=== PATIENT | female | born 1945 | race Caucasian/White ===

== ENCOUNTER → 2016-10-15 | Outpatient (CLI) | payer OTHER ==
[~2016-10-15] MED LIST: CALTRATE 600+D PO; MULTIPLE VITAMI1 T11 PO; OCUVITE TABLET1 TA1 PO; VITAMIN C250 M1 PO
--- NOTE | ~2016-10-15 | MY29 ---
[facility] A Service of [facility] RADIOLOGY TEXT RESULTS PATIENT: JOSELO PATHAK LOCATION: [facility] : 41 UNIT #: [id number] AGE: [address]: Meli Velazquez MD SEX: F ORDER DR: [id number] [facility] [address] [place], [place] [address] [id number] O MR#: [id number] Acc #: [id number] NAME: JOSELO PATHAK : 1945 SEX: F STUDY DATE/TIME: 10/15/2016 9:44 UNIT: [facility] ROOM: STUDY DESCRIPTION: MY FREDDIE SCREENING W/ CAD BILAT Attending Physician: Meli Velazquez M.D. Referring Physician: Meli Velazquez M.D. Ordering Physician: Meli Velazquez M.D. Primary Care Physician: Meli Velazquez M.D. MEDICAL IMAGING REPORT This report is preliminary unless electronic signature is present EXAM Bilateral digital screening mammogram with CAD DATE 10/15/2016 HISTORY Family history of breast cancer in 2 aunts in her late 60s. No personal history of breast cancer or current complaints. COMPARISON Bilateral screening mammogram 10/14/2015, 12/31/2013, 12/26/2012. FINDINGS CC and MLO views were obtained of each breast utilizing digital technique and reviewed with an FDA-approved CAD device. Heterogeneously dense fibroglandular tissue is present bilaterally which can limit sensitivity of mammography. No new or developing nodule is identified. A marker was placed over the left breast denoting the skin lesion. Benign round calcifications are present within each breast, left greater than right. There are no suspicious clustered microcalcifications. There is no architectural distortion. IMPRESSION BIRADS 2. Benign findings. Routine bilateral screening mammogram is recommended in 1 year. Patients over the age of 40 are entered into a reminder system with target due date for the next mammogram. A result letter will also be sent to the patient. BIRADS: 2, benign findings. [facility] A Service of [facility] RADIOLOGY TEXT RESULTS PAT[facility]: JO[facility]AK [id number] 41 UNIT #: [id number] AGE: [address]: Meli Velazquez MD SEX: F ORDER DR: Dictated by... Ashanti Cardozo M.D. THIS IS AN ELECTRONICALLY VERIFIED REPORT Ashanti Cardozo M.D. at 10/20/2016 3:26 PM MAN/luis enrique TD: 10/15/2016 22:02 JOB #: [id number] MEDICAL IMAGING REPORT Page 1 of 1 COPY
== END | disposition home or self-care (01) ==
LOC: CWCC 09:18
DX: Z12.31 Encounter for screening mammogram for malignant neoplasm of breast (principal); Z80.3 Family history of malignant neoplasm of breast
CPT/HCPCS: G0202